=== PATIENT | male | born 1940 | race Caucasian/White ===

== ENCOUNTER → 2016-08-29 | Outpatient (CLI) | payer OTHER ==
[~2016-08-29] MED LIST: ACET500C PO; ANTIBIOTIC PD; COLA100C PO; FISH100049 PO; FLOM5CAP PO; MACR100C3 PO; MULTTAB23 PO; NORV5TAB PO
== END ==
LOC: M SMT 11:27
PROVIDERS: ATTEND Urology
DX: C61 Malignant neoplasm of prostate (principal)

== ENCOUNTER 2016-09-18 22:49 | Emergency (ER) | payer OTHER ==
[~2016-09-18] VITALS: Ht 170.2 cm; Wt 83.0 kg
[2016-09-18 22:50] VITALS: BP 174/81
[2016-09-18] MEDS ORDERED: TRAZ100T4 PO (23:28)
[2016-09-18] MEDS ORDERED: CITA20TA4 PO (23:28)
[2016-09-19] MEDS ORDERED: guaiFENesin DM LIQ 10ML UD PO ONE (01:15)
--- NOTE | 2016-09-19 01:36 | REP ---
Clinical: Cough . Comparison: 10/24/2009 . Technique: PA and lateral. Findings: The mediastinum and cardiac silhouette are normal. The lung chapin are clear and without acute consolidation, effusion, or pneumothorax. The skeletal structures are intact and normal. Impression: 1. No acute cardiopulmonary process. Signed by Jon Foster MD 09/19/2016 01:27 A
== END 2016-09-19 02:03 | disposition home or self-care (01) ==
LOC: M ED 23:37
DX: R05 Cough (principal); Z87.891 Personal history of nicotine dependence

== ENCOUNTER → 2016-10-02 | Outpatient (REF) | payer OTHER ==
[~2016-10-02] MED LIST changes: +CITA20TA4 PO; +TRAZ100T4 PO
== END ==
LOC: M LAB REF 12:22
PROVIDERS: ATTEND Internal Medicine
DX: Z11.59 Encounter for screening for other viral diseases (principal)

== ENCOUNTER → 2017-01-01 | Outpatient (REF) | payer OTHER ==
[~2017-01-01] MED LIST changes: -COLA100C PO; +COLA100C5 PO; -MACR100C3 PO; +MACR100C43 PO; +TRAZ-136 PO; -TRAZ100T4 PO
== END ==
LOC: M LAB REF 16:24
PROVIDERS: ATTEND Surgery
DX: C44.519 Basal cell carcinoma of skin of other part of trunk (principal)

== ENCOUNTER → 2017-08-05 | Outpatient (CLI) | payer OTHER ==
[2017-08-05 19:45] LABS: PROSTATIC SPECIFIC AG MONITOR 4.02 NG/ML (< 4.0)
== END ==
LOC: M SMT 14:11
DX: C61 Malignant neoplasm of prostate (principal)
CPT/HCPCS: 84153

== ENCOUNTER 2018-05-11 10:55 | Inpatient (IN) | payer OTHER ==
[2018-05-11] MEDS: ASPIRIN 81 MG ENTERIC TAB PO (09:00)
[2018-05-11 13:06] LABS: BASO % 0.5 % (0.0-1.0); EOS # 0.2 10^3/uL (0.0-0.50); EOS % 2.7 % (0.0-3.0); HEMATOCRIT 42.8 % (42.0-52.0); HEMOGLOBIN 14.5 g/dl (13.5-17.5); IMMATURE GRANULOCYTE % 0.3 % (0-3.0); LYMPH # 1.1 10^3/uL (1.5-4.5); LYMPH % 17.8 % (24.0-44.0); MEAN CORPUSCULAR HEMOGLOBIN 31.9 pg (27.0-33.0); MEAN CORPUSCULAR HGB CONC 33.9 g/dl (32.0-36.5); MEAN CORPUSCULAR VOLUME 94.3 fl (80.0-96.0); MONO # 0.5 10^3/uL (0.0-0.8); MONO % 7.4 % (0.0-5.0); NEUTROPHILS # 4.6 10^3/uL (1.8-7.7); NEUTROPHILS % 71.3 % (36.0-66.0); PLATELET COUNT, AUTOMATED 203 10^3/uL (150-450); RED BLOOD COUNT 4.54 10^6/uL (4.30-6.10); RED CELL DISTRIBUTION WIDTH 11.6 % (11.5-14.5); WHITE BLOOD COUNT 6.4 10^3/uL (4.0-10.0)
[2018-05-11 13:21] LABS: INR 1.03; PROTHROMBIN TIME 13.6 SECONDS (12.1-14.4)
[2018-05-11 13:36] LABS: ANION GAP 6 MEQ/L (8-16); BLOOD UREA NITROGEN 29 MG/DL (7-18); CALCIUM LEVEL 8.8 MG/DL (8.8-10.2); CARBON DIOXIDE LEVEL 28 MEQ/L (21-32); CHLORIDE LEVEL 107 MEQ/L (98-107); CPK CREATINE PHOSPHOKINASE 58 U/L (39-308); ETHYL ALCOHOL (ETHANOL) < 0.003 % (0.000-0.010); GLOMERULAR FILTRATION RATE > 60.0 (>42); GLUCOSE, FASTING 95 MG/DL (70-100); MB/CK RELATIVE INDEX 2.59 (< OR =4); SODIUM LEVEL 141 MEQ/L (136-145); THYROID STIMULATING HORMONE 0.644 uIU/ML (0.358-3.740); TROPONIN I < 0.02 NG/ML (< 0.10)
[2018-05-11 16:21] LABS: HEMATOCRIT 42.5 % (42.0-52.0); HEMOGLOBIN 14.5 g/dl (13.5-17.5); MEAN CORPUSCULAR HGB CONC 34.1 g/dl (32.0-36.5); MEAN CORPUSCULAR VOLUME 93.8 fl (80.0-96.0); PLATELET COUNT, AUTOMATED 210 10^3/uL (150-450); RED BLOOD COUNT 4.53 10^6/uL (4.30-6.10); RED CELL DISTRIBUTION WIDTH 11.5 % (11.5-14.5); WHITE BLOOD COUNT 7.6 10^3/uL (4.0-10.0)
[2018-05-11 16:54] LABS: ANION GAP 5 MEQ/L (8-16); BLOOD UREA NITROGEN 27 MG/DL (7-18); CALCIUM LEVEL 8.9 MG/DL (8.8-10.2); CARBON DIOXIDE LEVEL 30 MEQ/L (21-32); CHLORIDE LEVEL 105 MEQ/L (98-107); CREATININE FOR GFR 0.92 MG/DL (0.70-1.30); GLOMERULAR FILTRATION RATE > 60.0 (>42); GLUCOSE, FASTING 97 MG/DL (70-100); POTASSIUM SERUM 3.9 MEQ/L (3.5-5.1); SODIUM LEVEL 140 MEQ/L (136-145)
[2018-05-11] MEDS ORDERED: hydrALAZINE INJ 20 MG/ML VIAL IV (17:00)
[2018-05-11] MEDS: ACETAMINOPHEN TAB 650MG DOSE (2X325MG) PO (18:18)
[2018-05-11] MEDS: hydrALAZINE INJ 20 MG/ML VIAL IV (18:25)
[2018-05-11 21:36] LABS: TROPONIN I < 0.02 NG/ML (< 0.10)
[2018-05-11] MEDS: CitaloPRAM (CeleXA) 20 MG TAB PO (22:27)
[2018-05-11] MEDS: HEPARIN SOD (PORCINE) 5000 UNITS/ML VIAL SC (22:28)
[2018-05-11] MEDS: traZODone 100 MG TAB PO (22:33)
[2018-05-12] MEDS: HEPARIN SOD (PORCINE) 5000 UNITS/ML VIAL SC ×3 (06:00→20:18)
[2018-05-12] MEDS: ASPIRIN 81 MG ENTERIC TAB PO (09:56)
[2018-05-12] MEDS: OMEGA-3 1000MG CAPSULE PO (09:56)
[2018-05-12] MEDS: MULTIVITAMINS/MINERALS THERAP 1 TAB PO (09:56)
[2018-05-12] MEDS: ACETAMINOPHEN TAB 650MG DOSE (2X325MG) PO (10:54)
[2018-05-12] MEDS: CitaloPRAM (CeleXA) 20 MG TAB PO (20:18)
[2018-05-12] MEDS: traZODone 100 MG TAB PO (20:30)
[2018-05-12] MEDS: METOPROLOL TART 25 MG TABLET PO (22:52)
[2018-05-12] MEDS: FLECAINIDE 50MG TABLET PO (22:53)
[2018-05-13] MEDS: HEPARIN SOD (PORCINE) 5000 UNITS/ML VIAL SC (06:14)
== END 2018-05-13 11:30 | disposition home or self-care (01) | DRG 312 ==
LOC: M ED 10:55 → M ED INP 15:36 → M PCU 17:17
DX: I95.1 Orthostatic hypotension (principal); I48.2 Chronic atrial fibrillation; I10 Essential (primary) hypertension; R55 Syncope and collapse; R00.1 Bradycardia, unspecified; R20.0 Anesthesia of skin; Z79.82 Long term (current) use of aspirin; Z79.899 Other long term (current) drug therapy; G47.00 Insomnia, unspecified; N40.0 Benign prostatic hyperplasia without lower urinary tract symptoms; Z87.891 Personal history of nicotine dependence

== ENCOUNTER → 2019-11-19 | Outpatient (CLI) | payer MEDICARE ==
[~2019-11-19] MED LIST changes: +ASPI81TA85 PO; -CITA20TA4 PO; +CITA20TA6 PO; +FLOM0.4C39 PO; -FLOM5CAP PO; -TRAZ-136 PO; +TRAZ-257 PO
== END ==
LOC: M LABSMTC 13:17
PROVIDERS: ATTEND Family Medicine
DX: Z11.59 Encounter for screening for other viral diseases (principal)
CPT/HCPCS: C9803; U0003

== ENCOUNTER → 2020-02-17 | Outpatient (REF) | payer MEDICARE ==
[~2020-02-17] MED LIST changes: -ASPI81TA85 PO; +ASPI81TA86 PO
[2020-03-22 10:45] LABS: INR 1.46; PARTIAL THROMBOPLASTIN TIME 38.9 SECONDS (25.0-38.4); PROTHROMBIN TIME 18.1 SECONDS (11.8-14.0)
== END ==
LOC: M LAB REF 12:51
PROVIDERS: ATTEND Internal Medicine
DX: Z01.818 Encounter for other preprocedural examination (principal)

== ENCOUNTER 2021-03-22 20:47 | Emergency (ER) | payer MEDICARE ==
[~2021-03-22] VITALS: Ht 170.2 cm; Wt 81.8 kg
[2021-03-22 21:43] LABS: BASO # 0.1 10^3/uL (0.0-0.2); BASO % 0.8 % (0.0-1.0); EOS # 0.2 10^3/uL (0.0-0.5); EOS % 2.3 % (0.0-3.0); HEMATOCRIT 46.1 % (42.0-52.0); HEMOGLOBIN 15.6 g/dl (13.5-17.5); LYMPH # 1.1 10^3/uL (1.5-5.0); MEAN CORPUSCULAR HGB CONC 33.8 g/dl (32.0-36.5); MEAN CORPUSCULAR VOLUME 94.5 fl (80.0-96.0); MONO # 0.8 10^3/uL (0.0-0.8); MONO % 7.3 % (2.0-8.0); NEUTROPHILS # 8.4 10^3/uL (1.5-8.5); PLATELET COUNT, AUTOMATED 226 10^3/uL (150-450); RED BLOOD COUNT 4.88 10^6/uL (4.30-6.10); WHITE BLOOD COUNT 10.6 10^3/uL (4.0-10.0)
[2021-03-22 21:54] LABS: INR 1.07; PROTHROMBIN TIME 14.3 SECONDS (12.7-14.5)
[2021-03-22 21:55] LABS: PARTIAL THROMBOPLASTIN TIME 34.6 SECONDS (25.9-37.0)
[2021-03-22 22:11] LABS: ALBUMIN 3.5 GM/DL (3.2-5.2); ALT/SGPT 23 U/L (12-78); BILIRUBIN,DIRECT 0.1 MG/DL (0.0-0.2); BILIRUBIN,TOTAL 0.5 MG/DL (0.2-1.0); BLOOD UREA NITROGEN 21 MG/DL (7-18); CALCIUM LEVEL 8.6 MG/DL (8.8-10.2); CARBON DIOXIDE LEVEL 28 MEQ/L (21-32); CHLORIDE LEVEL 107 MEQ/L (98-107); CK-MB VALUE MASS 2.5 NG/ML (<3.6); CPK CREATINE PHOSPHOKINASE 80 U/L (39-308); CREATININE FOR GFR 1.02 MG/DL (0.70-1.30); FREE T4 1.02 NG/DL (0.76-1.46); GLOMERULAR FILTRATION RATE > 60.0 (>42); GLUCOSE, FASTING 97 MG/DL (70-100); LIPASE 129 U/L (73-393); MB/CK RELATIVE INDEX 3.12 (< OR =4); POTASSIUM SERUM 4.1 MEQ/L (3.5-5.1); SODIUM LEVEL 144 MEQ/L (136-145); THYROID STIMULATING HORMONE 0.726 uIU/ML (0.358-3.740); TROPONIN I < 0.02 NG/ML (< 0.10)
[2021-03-22 23:19] VITALS: BP 167/96
--- NOTE | 2021-03-22 23:19 | REPVR ---
PROCEDURE INFORMATION: Exam: XR Chest Exam date and time: 03/22/2021 10:11 PM Age: 80 years old Clinical indication: Other: Chest pain TECHNIQUE: Imaging protocol: XR of the chest. Views: 2 views. COMPARISON: CR Chest, 2 view PA, Lat 09/19/2016 12:00 AM FINDINGS: Lungs: The lungs appear clear. Pleural spaces: There is no evidence of pneumothorax or pleural effusion. Heart/Mediastinum: The heart is top-normal in size. Bones/joints: There is bridging osteophyte formation lower thoracic spine. IMPRESSION: Clear appearing lungs. Electronically signed by: Augustin Fried On 03/22/2021 23:19:23 PM
--- NOTE | 2021-03-24 05:12 | ECGEPIP ---
[facility] - ED Test Date: 2021-03-22 Pat Name: NGOC RODARTE Department: Room: - Gender: Male [employer]: ED : 1940 Requested By: MATT Govea Order Number: [id number] Reading MD: Rich Chandra Measurements Intervals [place] Rate: 99 P: IN: QRS: 23 QRSD: 80 T: 12 QT: 350 QTc: 449 Interpretive Statements Atrial flutter with variable AV block Electronically Signed on 03-24-2021 5:11:30 EDT by Rich Chandra
== END 2021-03-22 23:50 | disposition home or self-care (01) ==
LOC: M ED 20:47
DX: R23.2 Flushing (principal); I48.91 Unspecified atrial fibrillation; F32.9 Major depressive disorder, single episode, unspecified; Z79.82 Long term (current) use of aspirin; Z79.899 Other long term (current) drug therapy

== ENCOUNTER 2021-10-31 09:34 | Inpatient (IN) | payer MEDICARE ==
[~2021-10-31] VITALS: Ht 170.2 cm; Wt 82.9 kg
[2021-10-31] MEDS ORDERED: LORazepam 2 MG/ML VIAL IV STA ×2 (11:06→12:33)
[2021-10-31 11:54] LABS: BASO % 0.3 % (0.0-1.0); EOS % 0.3 % (0.0-3.0); HEMATOCRIT 43.9 % (42.0-52.0); HEMOGLOBIN 14.9 g/dl (13.5-17.5); LYMPH # 0.9 10^3/uL (1.5-5.0); MEAN CORPUSCULAR HEMOGLOBIN 31.7 pg (27.0-33.0); MEAN CORPUSCULAR HGB CONC 33.9 g/dl (32.0-36.5); MEAN CORPUSCULAR VOLUME 93.4 fl (80.0-96.0); MONO # 0.5 10^3/uL (0.0-0.8); MONO % 4.9 % (2.0-8.0); NEUTROPHILS % 85.1 % (36.0-66.0); PLATELET COUNT, AUTOMATED 264 10^3/uL (150-450); WHITE BLOOD COUNT 9.4 10^3/uL (4.0-10.0)
[2021-10-31 12:05] LABS: INR 1.55; PARTIAL THROMBOPLASTIN TIME 39.4 SECONDS (25.9-37.0)
[2021-10-31 12:18] LABS: ALBUMIN 3.9 GM/DL (3.2-5.2); ALT/SGPT 20 U/L (12-78); BILIRUBIN,DIRECT 0.2 MG/DL (0.0-0.2); BILIRUBIN,TOTAL 0.7 MG/DL (0.2-1.0); BLOOD UREA NITROGEN 30 MG/DL (7-18); CALCIUM LEVEL 9.2 MG/DL (8.8-10.2); CARBON DIOXIDE LEVEL 26 MEQ/L (21-32); CHLORIDE LEVEL 110 MEQ/L (98-107); CREATININE FOR GFR 0.96 MG/DL (0.70-1.30); GLOMERULAR FILTRATION RATE > 60.0 (>42); GLUCOSE, FASTING 137 MG/DL (70-100); POTASSIUM SERUM 4.5 MEQ/L (3.5-5.1); SODIUM LEVEL 141 MEQ/L (136-145); TOTAL PROTEIN 6.3 GM/DL (6.4-8.2)
[2021-10-31] MEDS ORDERED: BACLOFEN 10 MG TAB PO ONE (12:40)
[2021-10-31 13:07] LABS: RSV AMPLIFICATION NEGATIVE (NEGATIVE)
[2021-10-31] MEDS ORDERED: ROCURONIUM BROMIDE 50 MG/5 ML VIAL IV PRN (15:25)
[2021-10-31] MEDS ORDERED: ROCURONIUM BROMIDE 50 MG/5 ML VIAL IV ONE (15:25)
[2021-10-31] MEDS ORDERED: ETOMIDATE INJ 20MG/10ML VIAL IV ONE (15:25)
[2021-10-31] MEDS: propofoL 1,000 MG in IV 1 EA IV SCH ×2 (15:43→21:40)
[2021-10-31] MEDS ORDERED: levETIRAcetam INJection 500 MG in D5W MINI-BAG PLUS 100 ML IV ONE (18:20)
[2021-10-31] MEDS ORDERED: REFRIGERATOR IV KEYS XX PRN (19:15)
[2021-10-31] MEDS: MIDAZOLAM HCL 100 MG in D5W 80 ML IV SCH (21:15)
[2021-10-31] MEDS ORDERED: PROHANCE 279.3MG/ML 15ML VIAL As Ordered ONE (22:08)
[2021-10-31] MEDS ORDERED: PROHANCE 279.3MG/ML 5ML VIAL As Ordered ONE (22:08)
[2021-10-31] MEDS ORDERED: methylPREDNISolone 1,000 MG, VIAL MATE ADAPTER 1 EACH in NS 250 ML IV ONE (23:55)
[2021-11-01] VITALS (20 sets, daily range): BP systolic 103–151; BP diastolic 54–88; O2SAT 100
[2021-11-01] MEDS: NS 1,000 ML IV SCH ×3 (01:02→20:42)
[2021-11-01 01:24] LABS: ABG BASE EXCESS -1.2 (-2.0-2.0); ABG HCO3 24.4 MEQ/L (22.0-26.0); ABG O2 SATURATION 99.4 % (95.0-99.0); ABG PARTIAL PRESSURE CO2 43.9 mmHg (35.0-45.0); ABG PARTIAL PRESSURE O2 169.5 mmHg (75.0-100.0); ABG STANDARD HCO3 23.5 MEQ/L (22.0-26.0); ABG TOTAL CO2 25.7 MEQ/L (23.0-31.0); ABG pH (ARTERIAL) 7.362 UNITS (7.350-7.450)
[2021-11-01] MEDS: propofoL 1,000 MG in IV 1 EA IV SCH ×2 (02:16→08:30)
[2021-11-01] MEDS: MIDAZOLAM HCL 100 MG in D5W 80 ML IV SCH (03:10)
[2021-11-01 04:24] LABS: BASO % 0.1 % (0.0-1.0); EOS % 0.2 % (0.0-3.0); HEMATOCRIT 39.7 % (42.0-52.0); HEMOGLOBIN 13.4 g/dl (13.5-17.5); LYMPH # 0.6 10^3/uL (1.5-5.0); LYMPH % 6.4 % (24.0-44.0); MEAN CORPUSCULAR HEMOGLOBIN 32.2 pg (27.0-33.0); MEAN CORPUSCULAR HGB CONC 33.8 g/dl (32.0-36.5); MEAN CORPUSCULAR VOLUME 95.4 fl (80.0-96.0); MONO # 0.3 10^3/uL (0.0-0.8); MONO % 2.9 % (2.0-8.0); NEUTROPHILS # 7.8 10^3/uL (1.5-8.5); NEUTROPHILS % 90.1 % (36.0-66.0); PLATELET COUNT, AUTOMATED 208 10^3/uL (150-450); RED BLOOD COUNT 4.16 10^6/uL (4.30-6.10); WHITE BLOOD COUNT 8.6 10^3/uL (4.0-10.0)
[2021-11-01] MEDS: IPRATROPIUM 0.5MG/ALBUTEROL 2.5MG INH SOL UD 3ML (DUONEB) NEB SCH ×2 (04:24→08:16)
[2021-11-01 04:57] LABS: ALBUMIN 3.4 GM/DL (3.2-5.2); ALT/SGPT 20 U/L (12-78); BILIRUBIN,TOTAL 0.9 MG/DL (0.2-1.0); BLOOD UREA NITROGEN 29 MG/DL (7-18); CALCIUM LEVEL 8.5 MG/DL (8.8-10.2); CARBON DIOXIDE LEVEL 26 MEQ/L (21-32); CHLORIDE LEVEL 110 MEQ/L (98-107); GLOMERULAR FILTRATION RATE > 60.0 (>42); GLUCOSE, FASTING 138 MG/DL (70-100); MAGNESIUM LEVEL 2.1 MG/DL (1.8-2.4); POTASSIUM SERUM 4.5 MEQ/L (3.5-5.1); SODIUM LEVEL 142 MEQ/L (136-145); TOTAL PROTEIN 5.7 GM/DL (6.4-8.2)
[2021-11-01] MEDS ORDERED: levETIRAcetam INJection 750 MG in D5W 100 ML IV SCH (06:00)
[2021-11-01] MEDS ORDERED: METO1TAB32 PO (06:12)
[2021-11-01] MEDS ORDERED: GABA-282 PO (06:12)
[2021-11-01] MEDS ORDERED: ATOR40TA75 PO (06:12)
[2021-11-01] MEDS ORDERED: XARE20TA PO (06:12)
[2021-11-01] MEDS ORDERED: HOME MED LIST COMPLETE! XX SCH (06:15)
[2021-11-01] MEDS ORDERED: MIDAZOLAM INJ 2MG/2ML VIAL (J2250 PER 1MG) IV ONE (06:20)
[2021-11-01] MEDS ORDERED: MIDAZOLAM INJ 2MG/2ML VIAL (J2250 PER 1MG) As Ordered ONE (06:21)
[2021-11-01] MEDS ORDERED: METOPROLOL 5 MG/5 ML VIAL IV STA (06:27)
[2021-11-01] MEDS ORDERED: METOPROLOL 5 MG/5 ML VIAL As Ordered ONE (06:28)
[2021-11-01] MEDS ORDERED: METOPROLOL 5 MG/5 ML VIAL IV PRN (08:55)
[2021-11-01] MEDS ORDERED: CHLORHEXIDINE GLUCONATE 0.12 % 15ML UDC (PERIDEX ORAL RINSE) MT SCH (09:00)
[2021-11-01] MEDS: PANTOPRAZOLE 40MG VIAL IV SCH (09:15)
[2021-11-01] MEDS ORDERED: IPRATROPIUM 0.5MG/ALBUTEROL 2.5MG INH SOL UD 3ML (DUONEB) NEB PRN (11:05)
[2021-11-01] MEDS: GABAPENTIN 300 MG CAP PO SCH ×2 (11:24→20:15)
[2021-11-01] MEDS: methylPREDNISolone 1,000 MG, VIAL MATE ADAPTER 1 EACH in NS 250 ML IV SCH (12:00)
[2021-11-01] MEDS ORDERED: levETIRAcetam INJection 500 MG in D5W 100 ML IV SCH (18:00)
[2021-11-01] MEDS ORDERED: levETIRAcetam INJection 500 MG in D5W MINI-BAG PLUS 100 ML IV SCH (18:00)
[2021-11-01] MEDS: RIVAROXABAN 20 MG TAB (XARELTO) PO SCH (18:04)
[2021-11-01] MEDS: clonazePAM 0.5 MG TAB PO SCH (20:14)
[2021-11-01] MEDS: THIAMINE 200MG 2ML VIAL IV SCH (20:15)
[2021-11-01] MEDS: rOPINIRole 0.25 MG TAB(REQUIP) PO SCH (20:37)
[2021-11-01] MEDS: diphenhydrAMINE 50MG CAP PO SCH (23:03)
[2021-11-02] VITALS: BP 131/59
[2021-11-02 02:02] LABS: APPEARANCE, URINE HAZY (CLEAR); BACTERIA, URINE AUTO 1+ (NEGATIVE); BILIRUBIN, URINE AUTO NEGATIVE (NEGATIVE); BLOOD, URINE BLOOD 3+ (NEGATIVE); COLOR, URINE YELLOW (YELLOW); GLUCOSE, URINE (UA) AUTO NEGATIVE (NEGATIVE); KETONE, URINE AUTO TRACE mg/dL (NEGATIVE); LEUKOCYTE ESTERASE, URINE AUTO 2+ (NEGATIVE); NITRITE, URINE AUTO NEGATIVE (NEGATIVE); PROTEIN, URINE AUTO 2+ mg/dL (NEGATIVE); RBC, URINE AUTO TNTC /HPF (0-3); SPECIFIC GRAVITY URINE AUTO 1.016 (1.002-1.035); SQUAMOUS EPITHELIAL CELL UR AU 0 /HPF (0-6); UROBILINOGEN, URINE AUTO 0.2 mg/dL (0.0-2.0); WBC, URINE AUTO 9 /HPF (0-3)
[2021-11-02 04:00] VITALS: BP 143/65
[2021-11-02] MEDS ORDERED: LORazepam 2 MG/ML VIAL IM STA (04:02)
[2021-11-02] MEDS ORDERED: LORazepam 2 MG/ML VIAL IV STA (04:05)
[2021-11-02] MEDS: cefTRIAXone SOD 1 GM in D5W MINI-BAG PLUS 50 ML IV SCH (04:37)
[2021-11-02 05:28] LABS: BASO % 0.1 % (0.0-1.0); HEMATOCRIT 38.8 % (42.0-52.0); HEMOGLOBIN 12.8 g/dl (13.5-17.5); LYMPH # 0.5 10^3/uL (1.5-5.0); LYMPH % 3.2 % (24.0-44.0); MEAN CORPUSCULAR HEMOGLOBIN 31.8 pg (27.0-33.0); MEAN CORPUSCULAR VOLUME 96.3 fl (80.0-96.0); MONO # 0.8 10^3/uL (0.0-0.8); MONO % 4.8 % (2.0-8.0); NEUTROPHILS # 14.8 10^3/uL (1.5-8.5); NEUTROPHILS % 91.2 % (36.0-66.0); PLATELET COUNT, AUTOMATED 220 10^3/uL (150-450); RED BLOOD COUNT 4.03 10^6/uL (4.30-6.10); WHITE BLOOD COUNT 16.2 10^3/uL (4.0-10.0)
[2021-11-02 05:53] LABS: BLOOD UREA NITROGEN 24 MG/DL (7-18); CALCIUM LEVEL 8.5 MG/DL (8.8-10.2); CARBON DIOXIDE LEVEL 23 MEQ/L (21-32); CHLORIDE LEVEL 113 MEQ/L (98-107); CREATININE FOR GFR 0.89 MG/DL (0.70-1.30); GLOMERULAR FILTRATION RATE > 60.0 (>42); GLUCOSE, FASTING 136 MG/DL (70-100); POTASSIUM SERUM 4.7 MEQ/L (3.5-5.1); SODIUM LEVEL 144 MEQ/L (136-145)
[2021-11-02 08:00] VITALS: BP 142/63
[2021-11-02 08:26] LABS: AMPHETAMINES LEVEL URINE NEGATIVE (NEGATIVE); BARBITURATES URINE NEGATIVE (NEGATIVE); BENZODIAZEPINES URINE POSITIVE (NEGATIVE); CANNABINOIDS URINE NEGATIVE (NEGATIVE); COCAINE METABOLITE URINE NEGATIVE (NEGATIVE); METHADONE URINE NEGATIVE (NEGATIVE); OPIATES URINE NEGATIVE (NEGATIVE); PHENCYCLIDINE URINE NEGATIVE (NEGATIVE)
[2021-11-02] MEDS: NS 1,000 ML IV SCH ×2 (09:00→19:32)
[2021-11-02] MEDS: clonazePAM 0.5 MG TAB PO SCH ×2 (09:00→09:03)
[2021-11-02] MEDS ORDERED: CEPHALEXIN 500 MG CAP PO SCH (09:00)
[2021-11-02] MEDS: rOPINIRole 0.25 MG TAB(REQUIP) PO SCH ×3 (09:03→20:05)
[2021-11-02] MEDS: PANTOPRAZOLE 40MG VIAL IV SCH (09:04)
[2021-11-02] MEDS: THIAMINE 200MG 2ML VIAL IV SCH (09:04)
[2021-11-02] MEDS: GABAPENTIN 300 MG CAP PO SCH ×2 (09:04→20:04)
[2021-11-02 12:00] VITALS: BP 128/76
[2021-11-02] MEDS ORDERED: METOPROLOL TART 12.5 MG PER 1/2 TAB PO ONE (12:00)
[2021-11-02] MEDS: methylPREDNISolone 1,000 MG, VIAL MATE ADAPTER 1 EACH in NS 250 ML IV SCH (12:08)
[2021-11-02] MEDS ORDERED: traMADol 50 MG TAB PO ONE (15:45)
[2021-11-02 16:00] VITALS: BP 120/56
[2021-11-02] MEDS ORDERED: LORazepam 1 MG TAB PO ONE (16:00)
[2021-11-02 16:08] LABS: ANTI CENTROMERE ANTIBODY <0.2 AI (0.0-0.9); CARDIOLIPIN IGA ANTIBODY <9 APL U/mL (0-11); CARDIOLIPIN IGG ANTIBODY <9 GPL U/mL (0-14); CARDIOLIPIN IGM ANTIBODY <9 MPL U/mL (0-12)
[2021-11-02] MEDS: RIVAROXABAN 20 MG TAB (XARELTO) PO SCH (19:18)
[2021-11-02 20:00] VITALS: BP 147/65
[2021-11-02] MEDS: METOPROLOL SUCC *XL* 25MG TAB (TopROL *XL*) PO SCH (20:05)
[2021-11-02] MEDS: diphenhydrAMINE 50MG CAP PO SCH (21:40)
[2021-11-02] MEDS ORDERED: traZODone 100 MG TAB PO ONE (22:15)
[2021-11-03] VITALS (9 sets, daily range): BP systolic 125–166; BP diastolic 60–88
[2021-11-03 00:42] LABS: HEMATOCRIT 36.5 % (42.0-52.0); HEMOGLOBIN 11.8 g/dl (13.5-17.5); MEAN CORPUSCULAR HEMOGLOBIN 31.4 pg (27.0-33.0); MEAN CORPUSCULAR HGB CONC 32.3 g/dl (32.0-36.5); MEAN CORPUSCULAR VOLUME 97.1 fl (80.0-96.0); PLATELET COUNT, AUTOMATED 218 10^3/uL (150-450); RED BLOOD COUNT 3.76 10^6/uL (4.30-6.10); WHITE BLOOD COUNT 16.7 10^3/uL (4.0-10.0)
[2021-11-03] MEDS: cefTRIAXone SOD 1 GM in D5W MINI-BAG PLUS 50 ML IV SCH (04:18)
[2021-11-03 07:14] LABS: HEMATOCRIT 36.9 % (42.0-52.0); HEMOGLOBIN 12.1 g/dl (13.5-17.5); LYMPH # 0.4 10^3/uL (1.5-5.0); LYMPH % 2.1 % (24.0-44.0); MEAN CORPUSCULAR HEMOGLOBIN 32.4 pg (27.0-33.0); MEAN CORPUSCULAR HGB CONC 32.8 g/dl (32.0-36.5); MEAN CORPUSCULAR VOLUME 98.9 fl (80.0-96.0); MONO # 0.6 10^3/uL (0.0-0.8); MONO % 3.8 % (2.0-8.0); NEUTROPHILS # 15.8 10^3/uL (1.5-8.5); NEUTROPHILS % 93.2 % (36.0-66.0); PLATELET COUNT, AUTOMATED 209 10^3/uL (150-450); RED BLOOD COUNT 3.73 10^6/uL (4.30-6.10)
[2021-11-03 07:39] LABS: ALT/SGPT 49 U/L (12-78); BILIRUBIN,TOTAL 0.4 MG/DL (0.2-1.0); BLOOD UREA NITROGEN 34 MG/DL (7-18); CALCIUM LEVEL 8.5 MG/DL (8.8-10.2); CARBON DIOXIDE LEVEL 29 MEQ/L (21-32); CHLORIDE LEVEL 113 MEQ/L (98-107); CREATININE FOR GFR 0.83 MG/DL (0.70-1.30); GLOMERULAR FILTRATION RATE > 60.0 (>42); GLUCOSE, FASTING 146 MG/DL (70-100); POTASSIUM SERUM 4.3 MEQ/L (3.5-5.1); SODIUM LEVEL 146 MEQ/L (136-145); TOTAL PROTEIN 5.1 GM/DL (6.4-8.2)
[2021-11-03] MEDS: THIAMINE 200MG 2ML VIAL IV SCH (10:27)
[2021-11-03] MEDS: GABAPENTIN 300 MG CAP PO SCH ×2 (10:27→20:11)
[2021-11-03] MEDS: rOPINIRole 0.25 MG TAB(REQUIP) PO SCH (10:27)
[2021-11-03] MEDS: PANTOPRAZOLE 40MG VIAL IV SCH (10:27)
[2021-11-03] MEDS: methylPREDNISolone 1,000 MG, VIAL MATE ADAPTER 1 EACH in NS 250 ML IV SCH (12:32)
[2021-11-03] MEDS: rOPINIRole 1MG TAB PO SCH ×2 (15:18→21:57)
[2021-11-03] MEDS: RIVAROXABAN 20 MG TAB (XARELTO) PO SCH (18:26)
[2021-11-03] MEDS: METOPROLOL SUCC *XL* 25MG TAB (TopROL *XL*) PO SCH (20:11)
[2021-11-03] MEDS: diphenhydrAMINE 50MG CAP PO SCH (21:57)
[2021-11-03] MEDS ORDERED: clonazePAM 0.5 MG TAB PO ONE (22:30)
[2021-11-04] MEDS ORDERED: hydrOXYzine 50 MG TAB PO ONE (01:25)
[2021-11-04] MEDS: cefTRIAXone SOD 1 GM in D5W MINI-BAG PLUS 50 ML IV SCH (03:01)
[2021-11-04] MEDS: rOPINIRole 1MG TAB PO SCH ×3 (05:09→21:22)
[2021-11-04 06:00] VITALS: BP 161/74
[2021-11-04] MEDS: GABAPENTIN 300 MG CAP PO SCH ×2 (09:46→21:22)
[2021-11-04] MEDS: PANTOPRAZOLE 40MG VIAL IV SCH (09:46)
[2021-11-04] MEDS: THIAMINE 200MG 2ML VIAL IV SCH (09:47)
[2021-11-04] MEDS: ERTAPENEM SODIUM 1 GM in NS MINI-BAG PLUS 50 ML IV SCH (09:47)
[2021-11-04 14:00] VITALS: BP 140/71
[2021-11-04] MEDS: RIVAROXABAN 20 MG TAB (XARELTO) PO SCH (17:09)
[2021-11-04] MEDS: traZODone 100 MG TAB PO SCH (21:22)
[2021-11-04] MEDS: METOPROLOL SUCC *XL* 25MG TAB (TopROL *XL*) PO SCH (21:24)
[2021-11-04 22:00] VITALS: BP 158/71
[2021-11-05] MEDS: rOPINIRole 1MG TAB PO SCH ×3 (05:29→22:30)
[2021-11-05 06:00] VITALS: BP 154/72
[2021-11-05] MEDS: GABAPENTIN 300 MG CAP PO SCH ×2 (07:49→20:21)
[2021-11-05] MEDS: PANTOPRAZOLE 40MG VIAL IV SCH (07:49)
[2021-11-05] MEDS: THIAMINE 200MG 2ML VIAL IV SCH (07:49)
[2021-11-05 07:54] LABS: HEMOGLOBIN 12.1 g/dl (13.5-17.5); MEAN CORPUSCULAR HEMOGLOBIN 31.6 pg (27.0-33.0); MEAN CORPUSCULAR HGB CONC 32.7 g/dl (32.0-36.5); MEAN CORPUSCULAR VOLUME 96.6 fl (80.0-96.0); PLATELET COUNT, AUTOMATED 219 10^3/uL (150-450); RED BLOOD COUNT 3.83 10^6/uL (4.30-6.10); WHITE BLOOD COUNT 12.2 10^3/uL (4.0-10.0)
[2021-11-05 08:20] LABS: BLOOD UREA NITROGEN 35 MG/DL (7-18); CALCIUM LEVEL 8.4 MG/DL (8.8-10.2); CARBON DIOXIDE LEVEL 32 MEQ/L (21-32); CHLORIDE LEVEL 111 MEQ/L (98-107); CREATININE FOR GFR 0.76 MG/DL (0.70-1.30); GLOMERULAR FILTRATION RATE > 60.0 (>42); GLUCOSE, FASTING 83 MG/DL (70-100); POTASSIUM SERUM 3.7 MEQ/L (3.5-5.1); SODIUM LEVEL 147 MEQ/L (136-145)
[2021-11-05] MEDS: ERTAPENEM SODIUM 1 GM in NS MINI-BAG PLUS 50 ML IV SCH (11:15)
[2021-11-05] MEDS ORDERED: TAMSULOSIN 0.4 MG CAP PO ONE (12:40)
[2021-11-05 14:00] VITALS: BP 143/71
[2021-11-05] MEDS ORDERED: FOSFOMYCIN TROMETHAMINE 3 GM POWDER PACKET (MONUROL) PO ONE (18:00)
[2021-11-05] MEDS: RIVAROXABAN 20 MG TAB (XARELTO) PO SCH (18:11)
[2021-11-05] MEDS: traZODone 100 MG TAB PO SCH (20:18)
[2021-11-05 20:21] VITALS: BP 139/69
[2021-11-05] MEDS: TAMSULOSIN 0.4 MG CAP PO SCH (20:21)
[2021-11-05] MEDS: METOPROLOL SUCC *XL* 25MG TAB (TopROL *XL*) PO SCH (20:21)
[2021-11-05 22:00] VITALS: BP 155/76
[2021-11-06] MEDS ORDERED: ACETAMINOPHEN TAB 650MG DOSE (2X325MG) PO PRN (00:05)
[2021-11-06] MEDS: rOPINIRole 1MG TAB PO SCH (05:39)
[2021-11-06 06:00] VITALS: BP 148/79
[2021-11-06 06:54] LABS: HEMATOCRIT 36.1 % (42.0-52.0); HEMOGLOBIN 11.9 g/dl (13.5-17.5); MEAN CORPUSCULAR HEMOGLOBIN 31.1 pg (27.0-33.0); MEAN CORPUSCULAR VOLUME 94.3 fl (80.0-96.0); PLATELET COUNT, AUTOMATED 201 10^3/uL (150-450); RED BLOOD COUNT 3.83 10^6/uL (4.30-6.10); WHITE BLOOD COUNT 8.3 10^3/uL (4.0-10.0)
[2021-11-06 07:13] LABS: BLOOD UREA NITROGEN 29 MG/DL (7-18); CALCIUM LEVEL 7.5 MG/DL (8.8-10.2); CARBON DIOXIDE LEVEL 31 MEQ/L (21-32); CHLORIDE LEVEL 107 MEQ/L (98-107); CREATININE FOR GFR 0.75 MG/DL (0.70-1.30); GLOMERULAR FILTRATION RATE > 60.0 (>42); GLUCOSE, FASTING 114 MG/DL (70-100); POTASSIUM SERUM 3.4 MEQ/L (3.5-5.1); SODIUM LEVEL 141 MEQ/L (136-145)
[2021-11-06] MEDS ORDERED: POTASSIUM CHLORIDE 10MEQ SR TABLET PO ONE (09:00)
[2021-11-06] MEDS: GABAPENTIN 300 MG CAP PO SCH (09:40)
[2021-11-06] MEDS: PANTOPRAZOLE 40MG VIAL IV SCH (09:40)
[2021-11-06] MEDS: THIAMINE 200MG 2ML VIAL IV SCH (09:40)
[2021-11-06] MEDS: TAMSULOSIN 0.4 MG CAP PO SCH (09:40)
[2021-11-06] MEDS ORDERED: ROPI1TAB3 PO (10:39)
[2021-11-06] MEDS ORDERED: GABA-282 PO (10:39)
[2021-11-06] MEDS ORDERED: FLOM0.4C39 PO (10:39)
[2021-11-06 16:09] LABS: ANTI DS-DNA AB Negative (Negative); ANTI SCLERODERMA ANTIBODIES <0.2 AI (0.0-0.9); ANTI SMITH(Sm) AB <20 Units (<20); ANTI-U1 RNP AB <20 Units (<20); ANTINUCLEAR ANTIBODIES DIRECT Negative (Negative)
[2021-11-08 23:07] LABS: ANCA-ATYPICAL <1:20 titer (Neg:<1:20); ANGIOTENSIN 1 CONVERTING ENZYM 34 U/L (14-82); COPPER PLASMA 81 ug/dL (69-132); CYTOPLASMIC NEUTROP AB ANCA-C <1:20 titer (Neg:<1:20); PERINUCLEAR AB ANCA-P <1:20 titer (Neg:<1:20)
== END 2021-11-06 13:10 | disposition home or self-care (01) | DRG 56 ==
LOC: EDBD 09:34 → M ED 09:34 → SUATTDRO 11-01 00:08 → M ED INP 11-01 00:18 → ENRESERV 11-01 00:40 → M ICU 11-01 01:21 → M MS5PR 11-03 21:00
PROVIDERS: ADMIT Internal Medicine; ATTEND Internal Medicine
PROC: 5A1935Z Respiratory Ventilation, Less than 24 Consecutive Hours (ICD-10-PCS; principal; 2021-11-01)
DX: G25.81 Restless legs syndrome (principal); G92.8 Other toxic encephalopathy; M62.82 Rhabdomyolysis; N39.0 Urinary tract infection, site not specified; I48.20 Chronic atrial fibrillation, unspecified; M50.00 Cervical disc disorder with myelopathy, unspecified cervical region; G37.3 Acute transverse myelitis in demyelinating disease of central nervous system; G25.71 Drug induced akathisia; E78.5 Hyperlipidemia, unspecified; Z79.01 Long term (current) use of anticoagulants; I51.7 Cardiomegaly; B96.20 Unspecified Escherichia coli [E. coli] as the cause of diseases classified elsewhere; F41.9 Anxiety disorder, unspecified; F32.A Depression, unspecified; R31.9 Hematuria, unspecified; T38.0X5A Adverse effect of glucocorticoids and synthetic analogues, initial encounter; Z79.899 Other long term (current) drug therapy

== ENCOUNTER 2021-11-08 09:32 | Inpatient (IN) | payer MEDICARE ==
[~2021-11-08] VITALS: Ht 170.2 cm; Wt 86.7 kg
[~2021-11-08 09:32] MED LIST changes: +ATOR40TA75 PO; +GABA-282 PO; +METO1TAB32 PO; +ROPI1TAB3 PO; +XARE20TA PO
[2021-11-08 10:44] LABS: BASO % 0.2 % (0.0-1.0); EOS # 0.3 10^3/uL (0.0-0.5); EOS % 2.7 % (0.0-3.0); HEMATOCRIT 37.7 % (42.0-52.0); HEMOGLOBIN 12.3 g/dl (13.5-17.5); LYMPH # 0.9 10^3/uL (1.5-5.0); LYMPH % 10.2 % (24.0-44.0); MEAN CORPUSCULAR HEMOGLOBIN 31.9 pg (27.0-33.0); MEAN CORPUSCULAR HGB CONC 32.6 g/dl (32.0-36.5); MEAN CORPUSCULAR VOLUME 97.7 fl (80.0-96.0); MONO # 0.8 10^3/uL (0.0-0.8); MONO % 8.3 % (2.0-8.0); NEUTROPHILS # 7.2 10^3/uL (1.5-8.5); NEUTROPHILS % 77.3 % (36.0-66.0); PLATELET COUNT, AUTOMATED 210 10^3/uL (150-450); RED BLOOD COUNT 3.86 10^6/uL (4.30-6.10); WHITE BLOOD COUNT 9.3 10^3/uL (4.0-10.0)
[2021-11-08 10:57] LABS: OSMOLALITY SERUM 298 MOSM/KG (280-301)
[2021-11-08 11:08] LABS: ALBUMIN 2.7 GM/DL (3.2-5.2); ALT/SGPT 37 U/L (12-78); BILIRUBIN,DIRECT < 0.1 MG/DL (0.0-0.2); BILIRUBIN,TOTAL 0.4 MG/DL (0.2-1.0); BLOOD UREA NITROGEN 26 MG/DL (7-18); CALCIUM LEVEL 8.8 MG/DL (8.8-10.2); CARBON DIOXIDE LEVEL 30 MEQ/L (21-32); CHLORIDE LEVEL 108 MEQ/L (98-107); CREATININE FOR GFR 0.84 MG/DL (0.70-1.30); GLOMERULAR FILTRATION RATE > 60.0 (>42); GLUCOSE, FASTING 143 MG/DL (70-100); POTASSIUM SERUM 4.3 MEQ/L (3.5-5.1); SODIUM LEVEL 143 MEQ/L (136-145); THYROID STIMULATING HORMONE 0.828 uIU/ML (0.358-3.740); TOTAL PROTEIN 4.9 GM/DL (6.4-8.2)
[2021-11-08 11:30] LABS: RSV AMPLIFICATION NEGATIVE (NEGATIVE)
[2021-11-08] MEDS ORDERED: ROPI1TAB3 PO (12:56)
[2021-11-08] MEDS ORDERED: GABA-282 PO (12:56)
[2021-11-08] MEDS ORDERED: TAMS1CAP17 PO (12:56)
[2021-11-08] MEDS ORDERED: VITMTA PO (12:58)
[2021-11-08] MEDS ORDERED: FISH1000 PO (12:58)
[2021-11-08] MEDS ORDERED: HOME MED LIST COMPLETE! XX SCH (13:00)
[2021-11-08 16:10] VITALS: BP 139/70
[2021-11-08] MEDS: GABAPENTIN 300 MG CAP PO SCH ×2 (16:58→20:31)
[2021-11-08 19:40] VITALS: BP 144/67
[2021-11-08] MEDS: traZODone 100 MG TAB PO SCH (20:30)
[2021-11-08] MEDS: CitaloPRAM (CeleXA) 20 MG TAB PO SCH (20:32)
[2021-11-08] MEDS: rOPINIRole 1MG TAB PO SCH (20:32)
[2021-11-08] MEDS: RIVAROXABAN 20 MG TAB (XARELTO) PO SCH (20:33)
[2021-11-08] MEDS: TAMSULOSIN 0.4 MG CAP PO SCH (20:33)
[2021-11-08] MEDS: METOPROLOL SUCC *XL* 25MG TAB (TopROL *XL*) PO SCH (20:33)
[2021-11-08] MEDS ORDERED: SIMETHICONE 80MG CHEW TAB PO ONE (20:55)
[2021-11-08] MEDS ORDERED: ATORVASTATIN 20 MG TAB PO SCH (21:00)
[2021-11-08] MEDS ORDERED: rOPINIRole 1MG TAB PO SCH (22:00)
[2021-11-08] MEDS: LACTOBACILLUS ACIDOPHILUS CAP (BACID) PO SCH (22:24)
[2021-11-08 23:21] VITALS: BP 150/68
[2021-11-09] MEDS ORDERED: RAMELTEON 8 MG TAB (ROZEREM) PO PRN (04:30)
[2021-11-09] MEDS ORDERED: ACETAMINOPHEN TAB 650MG DOSE (2X325MG) PO PRN (04:30)
[2021-11-09 05:38] VITALS: BP 147/67
[2021-11-09 06:23] LABS: BASO % 0.3 % (0.0-1.0); EOS # 0.3 10^3/uL (0.0-0.5); EOS % 2.7 % (0.0-3.0); HEMATOCRIT 36.7 % (42.0-52.0); LYMPH % 10.1 % (24.0-44.0); MEAN CORPUSCULAR HGB CONC 32.7 g/dl (32.0-36.5); MEAN CORPUSCULAR VOLUME 97.9 fl (80.0-96.0); MONO # 1.2 10^3/uL (0.0-0.8); NEUTROPHILS % 73.2 % (36.0-66.0); PLATELET COUNT, AUTOMATED 207 10^3/uL (150-450); RED BLOOD COUNT 3.75 10^6/uL (4.30-6.10); WHITE BLOOD COUNT 9.6 10^3/uL (4.0-10.0)
[2021-11-09 06:58] LABS: BLOOD UREA NITROGEN 20 MG/DL (7-18); CALCIUM LEVEL 8.6 MG/DL (8.8-10.2); CARBON DIOXIDE LEVEL 27 MEQ/L (21-32); CHLORIDE LEVEL 109 MEQ/L (98-107); GLOMERULAR FILTRATION RATE > 60.0 (>42); GLUCOSE, FASTING 122 MG/DL (70-100); POTASSIUM SERUM 4.3 MEQ/L (3.5-5.1); SODIUM LEVEL 145 MEQ/L (136-145)
[2021-11-09] MEDS: GABAPENTIN 300 MG CAP PO SCH ×3 (08:17→20:44)
[2021-11-09] MEDS: rOPINIRole 1MG TAB PO SCH ×2 (08:17→20:44)
[2021-11-09] MEDS: TAMSULOSIN 0.4 MG CAP PO SCH ×2 (08:17→20:44)
[2021-11-09] MEDS: LACTOBACILLUS ACIDOPHILUS CAP (BACID) PO SCH (08:17)
[2021-11-09 14:00] VITALS: BP 110/60
[2021-11-09] MEDS: traZODone 100 MG TAB PO SCH (20:43)
[2021-11-09] MEDS: RIVAROXABAN 20 MG TAB (XARELTO) PO SCH (20:44)
[2021-11-09] MEDS: CitaloPRAM (CeleXA) 20 MG TAB PO SCH (20:45)
[2021-11-09 20:47] VITALS: BP 127/73
[2021-11-09] MEDS: METOPROLOL SUCC *XL* 25MG TAB (TopROL *XL*) PO SCH (20:47)
[2021-11-09 22:00] VITALS: BP 150/78
[2021-11-10 05:53] VITALS: BP 125/60
[2021-11-10] MEDS: LACTOBACILLUS ACIDOPHILUS CAP (BACID) PO SCH (08:55)
[2021-11-10] MEDS: TAMSULOSIN 0.4 MG CAP PO SCH (08:56)
[2021-11-10] MEDS: GABAPENTIN 300 MG CAP PO SCH (08:56)
[2021-11-10] MEDS: rOPINIRole 1MG TAB PO SCH (08:57)
[2021-11-10 09:00] VITALS: BP 127/59
[2021-11-10] MEDS ORDERED: ROPI1TAB3 PO (11:21)
[2021-11-10] MEDS ORDERED: SIME80CH5 PO (11:56)
[2021-11-10] MEDS ORDERED: RISATAB3 PO (11:56)
[2021-11-10 13:43] VITALS: BP 150/79
== END 2021-11-10 14:46 | disposition home health service (06) | DRG 948 ==
LOC: EDBD 09:32 → M ED 09:32 → M ED INP 13:21 → ENRESERV 15:15 → M MSPAV 16:08
PROVIDERS: ADMIT Internal Medicine Nephrology; ATTEND Internal Medicine Nephrology
DX: R53.1 Weakness (principal); M50.00 Cervical disc disorder with myelopathy, unspecified cervical region; I48.92 Unspecified atrial flutter; K52.1 Toxic gastroenteritis and colitis; I48.0 Paroxysmal atrial fibrillation; E78.5 Hyperlipidemia, unspecified; G25.81 Restless legs syndrome; N40.1 Benign prostatic hyperplasia with lower urinary tract symptoms; Z96.0 Presence of urogenital implants; F41.9 Anxiety disorder, unspecified; F32.A Depression, unspecified; R33.9 Retention of urine, unspecified; Z98.1 Arthrodesis status; Z20.822 Contact with and (suspected) exposure to COVID-19; Z79.899 Other long term (current) drug therapy; Z79.01 Long term (current) use of anticoagulants; R19.7 Diarrhea, unspecified; T36.95XA Adverse effect of unspecified systemic antibiotic, initial encounter

== ENCOUNTER → 2021-11-28 | Outpatient (REF) | payer MEDICARE ==
[~2021-11-28] MED LIST changes: +FISH1000 PO; +RISATAB3 PO; +SIME80CH5 PO; +TAMS1CAP17 PO; +VITMTA PO
== END ==
LOC: M SMT PRO 09:10
PROVIDERS: ATTEND Urology
DX: C61 Malignant neoplasm of prostate (principal)

== ENCOUNTER → 2021-12-17 | Outpatient (CLI) | payer MEDICARE | LOC: M PLAIMG 12:00 | PROVIDERS: ATTEND Urology | DX: Z01.818 Encounter for other preprocedural examination (principal); C61 Malignant neoplasm of prostate ==

== ENCOUNTER 2021-12-25 20:37 | Inpatient (IN) | payer MEDICARE ==
[~2021-12-25] VITALS: Ht 170.2 cm; Wt 86.1 kg
[~2021-12-25 20:37] MED LIST changes: -CEFD300CAP PO
[2021-12-25] MEDS ORDERED: ACETAMINOPHEN TAB 650MG DOSE (2X325MG) PO ONE (21:05)
[2021-12-25 21:30] LABS: BASO % 0.3 % (0.0-1.0); EOS % 0.1 % (0.0-3.0); HEMATOCRIT 34.8 % (42.0-52.0); HEMOGLOBIN 11.4 g/dl (13.5-17.5); LYMPH # 0.4 10^3/uL (1.5-5.0); LYMPH % 2.4 % (24.0-44.0); MEAN CORPUSCULAR HEMOGLOBIN 31.6 pg (27.0-33.0); MEAN CORPUSCULAR HGB CONC 32.8 g/dl (32.0-36.5); MEAN CORPUSCULAR VOLUME 96.4 fl (80.0-96.0); MONO # 1.3 10^3/uL (0.0-0.8); MONO % 8.3 % (2.0-8.0); NEUTROPHILS # 13.6 10^3/uL (1.5-8.5); NEUTROPHILS % 88.2 % (36.0-66.0); PLATELET COUNT, AUTOMATED 222 10^3/uL (150-450); RED BLOOD COUNT 3.61 10^6/uL (4.30-6.10); WHITE BLOOD COUNT 15.4 10^3/uL (4.0-10.0)
[2021-12-25] MEDS ORDERED: NS 1,000 ML IV ONE (21:35)
[2021-12-25 21:42] LABS: INR 1.37; PROTHROMBIN TIME 17.3 SECONDS (12.7-14.5)
[2021-12-25 21:43] LABS: PARTIAL THROMBOPLASTIN TIME 36.5 SECONDS (25.9-37.0)
[2021-12-25 21:44] LABS: AMORPHOUS SEDIMENT SMALL (NEGATIVE); APPEARANCE, URINE CLOUDY (CLEAR); BACTERIA, URINE AUTO 1+ (NEGATIVE); BILIRUBIN, URINE AUTO NEGATIVE (NEGATIVE); BLOOD, URINE BLOOD 3+ (NEGATIVE); COLOR, URINE AMBER (YELLOW); GLUCOSE, URINE (UA) AUTO NEGATIVE (NEGATIVE); KETONE, URINE AUTO TRACE mg/dL (NEGATIVE); LEUKOCYTE ESTERASE, URINE AUTO 3+ (NEGATIVE); MUCUS, URINE SMALL (NEGATIVE); NITRITE, URINE AUTO POSITIVE (NEGATIVE); PROTEIN, URINE AUTO 2+ mg/dL (NEGATIVE); RBC, URINE AUTO 65 /HPF (0-3); SPECIFIC GRAVITY URINE AUTO 1.016 (1.002-1.035); SQUAMOUS EPITHELIAL CELL UR AU 0 /HPF (0-6); UROBILINOGEN, URINE AUTO 0.2 mg/dL (0.0-2.0); WBC, URINE AUTO TNTC /HPF (0-3)
[2021-12-25 21:52] LABS: ALBUMIN 3.2 GM/DL (3.2-5.2); ALT/SGPT 16 U/L (12-78); AMYLASE 29 U/L (25-115); BILIRUBIN,DIRECT 0.3 MG/DL (0.0-0.2); BILIRUBIN,TOTAL 1.4 MG/DL (0.2-1.0); BLOOD UREA NITROGEN 21 MG/DL (7-18); C REACTIVE PROTEIN QUANTITATIV 8.21 MG/DL (0.00-0.30); CALCIUM LEVEL 8.4 MG/DL (8.8-10.2); CARBON DIOXIDE LEVEL 26 MEQ/L (21-32); CHLORIDE LEVEL 106 MEQ/L (98-107); CREATININE FOR GFR 1.03 MG/DL (0.70-1.30); GLOMERULAR FILTRATION RATE > 60.0 (>42); GLUCOSE, FASTING 167 MG/DL (70-100); POTASSIUM SERUM 3.9 MEQ/L (3.5-5.1); SODIUM LEVEL 140 MEQ/L (136-145); TOTAL PROTEIN 5.4 GM/DL (6.4-8.2)
[2021-12-25 21:54] LABS: CK-MB VALUE MASS < 1.0 NG/ML (<3.6); CPK CREATINE PHOSPHOKINASE 67 U/L (39-308); MB/CK RELATIVE INDEX 1.49 (< OR =4)
[2021-12-25] MEDS ORDERED: cefTRIAXone SOD 2 GM in D5W MINI-BAG PLUS 50 ML IV ONE (23:35)
[2021-12-26] MEDS ORDERED: ACETAMINOPHEN TAB 650MG DOSE (2X325MG) PO PRN (00:10)
[2021-12-26] MEDS ORDERED: MAALOX 30 ML SUSP *UDC PO PRN (00:10)
[2021-12-26] MEDS ORDERED: MOM 30ML SUSPENSION UDC PO PRN (00:10)
[2021-12-26] MEDS ORDERED: ROPI1TAB3 PO (00:12)
[2021-12-26] MEDS ORDERED: HOME MED LIST COMPLETE! XX SCH (00:15)
[2021-12-26 03:07] VITALS: BP 124/63
[2021-12-26] MEDS: MEROPENEM INJ 1 GM in IV 1 EA IV SCH ×3 (04:13→17:25)
[2021-12-26] MEDS ORDERED: rOPINIRole 1MG TAB PO ONE (04:50)
[2021-12-26 06:00] VITALS: BP 128/62
[2021-12-26 06:21] LABS: BASO # 0.1 10^3/uL (0.0-0.2); BASO % 0.4 % (0.0-1.0); EOS % 0.3 % (0.0-3.0); HEMATOCRIT 39.9 % (42.0-52.0); HEMOGLOBIN 12.9 g/dl (13.5-17.5); LYMPH # 0.8 10^3/uL (1.5-5.0); MEAN CORPUSCULAR HEMOGLOBIN 31.7 pg (27.0-33.0); MEAN CORPUSCULAR HGB CONC 32.3 g/dl (32.0-36.5); MONO # 1.2 10^3/uL (0.0-0.8); NEUTROPHILS # 11.3 10^3/uL (1.5-8.5); NEUTROPHILS % 83.9 % (36.0-66.0); PLATELET COUNT, AUTOMATED 242 10^3/uL (150-450); RED BLOOD COUNT 4.07 10^6/uL (4.30-6.10); WHITE BLOOD COUNT 13.5 10^3/uL (4.0-10.0)
[2021-12-26 06:38] LABS: ALBUMIN 3.5 GM/DL (3.2-5.2); ALT/SGPT 16 U/L (12-78); BLOOD UREA NITROGEN 20 MG/DL (7-18); CALCIUM LEVEL 8.4 MG/DL (8.8-10.2); CARBON DIOXIDE LEVEL 29 MEQ/L (21-32); CHLORIDE LEVEL 105 MEQ/L (98-107); CREATININE FOR GFR 0.98 MG/DL (0.70-1.30); GLOMERULAR FILTRATION RATE > 60.0 (>42); GLUCOSE, FASTING 104 MG/DL (70-100); MAGNESIUM LEVEL 1.9 MG/DL (1.8-2.4); SODIUM LEVEL 141 MEQ/L (136-145); TOTAL PROTEIN 6.1 GM/DL (6.4-8.2)
[2021-12-26] MEDS: MULTIVITAMINS/MINERALS THERAP 1 TAB PO SCH (08:44)
[2021-12-26] MEDS: TAMSULOSIN 0.4 MG CAP PO SCH ×2 (08:44→20:02)
[2021-12-26] MEDS: LACTOBACILLUS ACIDOPHILUS CAP (BACID) PO SCH (08:44)
[2021-12-26] MEDS: GABAPENTIN 300 MG CAP PO SCH ×3 (08:44→20:02)
[2021-12-26] MEDS: rOPINIRole 1MG TAB PO SCH ×2 (08:44→20:03)
[2021-12-26 14:00] VITALS: BP 129/48
[2021-12-26] MEDS ORDERED: SIMETHICONE 80MG CHEW TAB PO PRN (15:10)
[2021-12-26] MEDS ORDERED: BISACODYL 10 MG SUPP PR ONE (16:00)
[2021-12-26 20:15] VITALS: BP 128/51
[2021-12-26] MEDS ORDERED: CitaloPRAM (CeleXA) 20 MG TAB PO SCH (21:00)
[2021-12-26] MEDS ORDERED: RIVAROXABAN 20MG TAB (XARELTO) PO SCH (21:00)
[2021-12-26] MEDS ORDERED: traZODone 100 MG TAB PO SCH (21:00)
[2021-12-26] MEDS ORDERED: ATORVASTATIN 20 MG TAB PO SCH (21:00)
[2021-12-27] MEDS: MEROPENEM INJ 1 GM in IV 1 EA IV SCH ×2 (01:27→10:51)
[2021-12-27 05:08] VITALS: BP 125/50
[2021-12-27 08:04] LABS: BASO % 0.5 % (0.0-1.0); EOS # 0.2 10^3/uL (0.0-0.5); EOS % 1.8 % (0.0-3.0); HEMOGLOBIN 11.4 g/dl (13.5-17.5); LYMPH % 11.3 % (24.0-44.0); MEAN CORPUSCULAR HEMOGLOBIN 31.6 pg (27.0-33.0); MEAN CORPUSCULAR HGB CONC 32.6 g/dl (32.0-36.5); MONO # 0.9 10^3/uL (0.0-0.8); MONO % 10.2 % (2.0-8.0); NEUTROPHILS # 6.6 10^3/uL (1.5-8.5); NEUTROPHILS % 75.7 % (36.0-66.0); PLATELET COUNT, AUTOMATED 207 10^3/uL (150-450); RED BLOOD COUNT 3.61 10^6/uL (4.30-6.10); WHITE BLOOD COUNT 8.7 10^3/uL (4.0-10.0)
[2021-12-27] MEDS: LACTOBACILLUS ACIDOPHILUS CAP (BACID) PO SCH (08:14)
[2021-12-27] MEDS: TAMSULOSIN 0.4 MG CAP PO SCH (08:14)
[2021-12-27] MEDS: GABAPENTIN 300 MG CAP PO SCH (08:14)
[2021-12-27] MEDS: MULTIVITAMINS/MINERALS THERAP 1 TAB PO SCH (08:14)
[2021-12-27] MEDS: rOPINIRole 1MG TAB PO SCH (08:14)
[2021-12-27 08:17] LABS: BLOOD UREA NITROGEN 19 MG/DL (7-18); CALCIUM LEVEL 8.5 MG/DL (8.8-10.2); CARBON DIOXIDE LEVEL 28 MEQ/L (21-32); CHLORIDE LEVEL 108 MEQ/L (98-107); CREATININE FOR GFR 0.81 MG/DL (0.70-1.30); GLOMERULAR FILTRATION RATE > 60.0 (>42); GLUCOSE, FASTING 118 MG/DL (70-100); POTASSIUM SERUM 3.8 MEQ/L (3.5-5.1); SODIUM LEVEL 143 MEQ/L (136-145)
[2021-12-27] MEDS ORDERED: CEFD300CAP PO (10:15)
== END 2021-12-27 12:26 | disposition home or self-care (01) | DRG 872 ==
LOC: EDBD 20:37 → M ED 20:37 → M ED INP 12-26 00:10 → M MSPAV 12-26 02:44
PROVIDERS: ADMIT Family Medicine; ATTEND Internal Medicine
DX: A41.9 Sepsis, unspecified organism (principal); N39.0 Urinary tract infection, site not specified; T83.511A Infection and inflammatory reaction due to indwelling urethral catheter, initial encounter; G37.3 Acute transverse myelitis in demyelinating disease of central nervous system; N40.0 Benign prostatic hyperplasia without lower urinary tract symptoms; I48.0 Paroxysmal atrial fibrillation; E78.5 Hyperlipidemia, unspecified; F32.A Depression, unspecified; G25.81 Restless legs syndrome; F41.9 Anxiety disorder, unspecified; N28.1 Cyst of kidney, acquired; K76.89 Other specified diseases of liver; Z79.899 Other long term (current) drug therapy; R33.9 Retention of urine, unspecified; G31.89 Other specified degenerative diseases of nervous system; Y84.6 Urinary catheterization as the cause of abnormal reaction of the patient, or of later complication, without mention of misadventure at the time of the procedure

== ENCOUNTER → 2021-12-25 | Outpatient (REF) | payer MEDICARE ==
[~2021-12-25] MED LIST changes: +CEFD300CAP PO
[2021-12-25 12:43] LABS: INR 1.42; PARTIAL THROMBOPLASTIN TIME 38.1 SECONDS (25.9-37.0); PROTHROMBIN TIME 17.8 SECONDS (12.7-14.5)
== END ==
LOC: M LAB REF 12:04
PROVIDERS: ATTEND Internal Medicine
DX: Z01.818 Encounter for other preprocedural examination (principal); C61 Malignant neoplasm of prostate; D72.829 Elevated white blood cell count, unspecified

== ENCOUNTER → 2022-01-06 | Outpatient (CLI) | payer MEDICARE ==
[~2022-01-06] MED LIST changes: +CEFD300C41 PO; +CEFD300CAP PO
== END ==
LOC: M LABSMTC 09:27
PROVIDERS: ATTEND Anesthesiology
DX: Z01.812 Encounter for preprocedural laboratory examination (principal); Z11.52 Encounter for screening for COVID-19

== ENCOUNTER 2022-01-10 06:02 | Inpatient (IN) | payer MEDICARE ==
[~2022-01-10] VITALS: Ht 170.2 cm; Wt 85.3 kg
[~2022-01-10 06:02] MED LIST changes: +HEPARIN SOD (PORCINE) 5000UNITS/ML 1ML VIAL/SYRINGE SQ ONE; +ceFAZolin SOD 2 GM in IV 1 EA IV ONE
[2022-01-10] MEDS ORDERED: LR 1,000 ML IV SCH ×2 (06:15→14:40)
[2022-01-10] MEDS ORDERED: propofoL 200 MG/20 ML VIAL As Ordered ONE (07:08)
[2022-01-10] MEDS ORDERED: fentaNYL 250 MCG/5 ML INJECTION As Ordered ONE (07:08)
[2022-01-10] MEDS ORDERED: LIDOCAINE 2% INJ 100 MG/5 ML SYRINGE As Ordered ONE (07:08)
[2022-01-10] MEDS ORDERED: SUGAMMADEX SODIUM 500 MG/5 ML VIAL (BRIDION) As Ordered ONE (07:08)
[2022-01-10] MEDS ORDERED: ROCURONIUM BROMIDE 50 MG/5 ML VIAL As Ordered ONE ×3 (07:08→13:17)
[2022-01-10] MEDS ORDERED: MIDAZOLAM INJ 2MG/2ML VIAL (J2250 PER 1MG) As Ordered ONE (07:09)
[2022-01-10] MEDS ORDERED: ETOMIDATE INJ 20MG/10ML VIAL As Ordered ONE (07:09)
[2022-01-10] MEDS ORDERED: LIDOCAINE 1% SDV 30ML VIAL As Ordered ONE (07:11)
[2022-01-10] MEDS ORDERED: BUPIVACAINE HCL 0.25% 30ML VIAL As Ordered ONE ×2 (07:11→07:45)
[2022-01-10] MEDS ORDERED: ACETAMINOPHEN TAB 650MG DOSE (2X325MG) PO PRN (07:25)
[2022-01-10] MEDS ORDERED: ONDANSETRON 4MG 2ML VIAL IV PRN ×2 (07:25→14:40)
[2022-01-10] MEDS ORDERED: NS 1,000 ML IV SCH (07:25)
[2022-01-10] MEDS ORDERED: PERCOCET 5MG/325MG TAB PO PRN (07:25)
[2022-01-10] MEDS ORDERED: ONDANSETRON 4MG 2ML VIAL As Ordered ONE (08:02)
[2022-01-10] MEDS ORDERED: dexameTHASONE 4 MG/ML 1ML VIAL (J1100 PER 1MG) As Ordered ONE (08:02)
[2022-01-10] MEDS ORDERED: ACETAMINOPHEN 1000MG 100ML IV BTL (OFIRMEV) (J0131 PER 10MG) As Ordered ONE (08:09)
[2022-01-10] MEDS ORDERED: hydrALAZINE 20MG/ML 1ML VIAL (J0360 PER 20MG) As Ordered ONE (08:33)
[2022-01-10] MEDS ORDERED: ceFAZolin 1GM VIAL (J0690 PER 500MG) As Ordered ONE (12:04)
[2022-01-10] MEDS ORDERED: MEPERIDINE INJ 25 MG/ML VIAL (J2175) IV PRN (14:40)
[2022-01-10] MEDS ORDERED: fentaNYL 100 MCG/2 ML INJECTION IV PRN (14:40)
[2022-01-10] MEDS ORDERED: METOCLOPRAMIDE INJ 10MG/2ML VIAL (J2765 PER 1) IV PRN (14:40)
[2022-01-10] MEDS ORDERED: HYDROMORPHONE HCL 0.5 MG/ 0.5 ML SYRINGE (J1170 PER 1) IV PRN (14:40)
[2022-01-10] MEDS ORDERED: oxyCODONE 5MG TAB PO PRN (14:40)
[2022-01-10 14:46] LABS: HEMATOCRIT 32.4 % (42.0-52.0); HEMOGLOBIN 10.5 g/dl (13.5-17.5); MEAN CORPUSCULAR HEMOGLOBIN 31.4 pg (27.0-33.0); MEAN CORPUSCULAR HGB CONC 32.4 g/dl (32.0-36.5); PLATELET COUNT, AUTOMATED 232 10^3/uL (150-450); RED BLOOD COUNT 3.34 10^6/uL (4.30-6.10); WHITE BLOOD COUNT 15.2 10^3/uL (4.0-10.0)
[2022-01-10 15:16] LABS: BLOOD UREA NITROGEN 20 MG/DL (7-18); CALCIUM LEVEL 8.3 MG/DL (8.8-10.2); CARBON DIOXIDE LEVEL 28 MEQ/L (21-32); CHLORIDE LEVEL 108 MEQ/L (98-107); CREATININE FOR GFR 1.11 MG/DL (0.70-1.30); GLOMERULAR FILTRATION RATE > 60.0 (>42); GLUCOSE, FASTING 138 MG/DL (70-100); POTASSIUM SERUM 4.4 MEQ/L (3.5-5.1); SODIUM LEVEL 140 MEQ/L (136-145)
[2022-01-10] MEDS: ceFAZolin SOD 1 GM in D5W MINI-BAG PLUS 50 ML IV SCH (15:55)
[2022-01-10] MEDS ORDERED: CitaloPRAM (CeleXA) 20 MG TAB PO SCH (21:00)
[2022-01-10] MEDS: GABAPENTIN 300 MG CAP PO SCH (21:30)
[2022-01-10] MEDS: HEPARIN SOD (PORCINE) 5000UNITS/ML 1ML VIAL/SYRINGE SC SCH (21:30)
[2022-01-10] MEDS: DOCUSATE SODIUM 100MG CAPSULE PO SCH (21:30)
[2022-01-10] MEDS: rOPINIRole 1MG TAB PO SCH (21:30)
[2022-01-11] MEDS: ceFAZolin SOD 1 GM in D5W MINI-BAG PLUS 50 ML IV SCH ×2
[2022-01-11 02:00] VITALS: BP 123/54
[2022-01-11] MEDS: PERCOCET 5MG/325MG TAB PO PRN ×3 (02:23→13:55)
[2022-01-11] MEDS: HEPARIN SOD (PORCINE) 5000UNITS/ML 1ML VIAL/SYRINGE SC SCH (06:01)
[2022-01-11 06:49] VITALS: BP 132/58
[2022-01-11 07:48] LABS: HEMOGLOBIN 9.2 g/dl (13.5-17.5); MEAN CORPUSCULAR HEMOGLOBIN 31.4 pg (27.0-33.0); MEAN CORPUSCULAR HGB CONC 32.9 g/dl (32.0-36.5); MEAN CORPUSCULAR VOLUME 95.6 fl (80.0-96.0); PLATELET COUNT, AUTOMATED 218 10^3/uL (150-450); RED BLOOD COUNT 2.93 10^6/uL (4.30-6.10); WHITE BLOOD COUNT 10.2 10^3/uL (4.0-10.0)
[2022-01-11] MEDS: DOCUSATE SODIUM 100MG CAPSULE PO SCH (07:58)
[2022-01-11] MEDS: rOPINIRole 1MG TAB PO SCH (07:59)
[2022-01-11] MEDS: GABAPENTIN 300 MG CAP PO SCH (08:00)
[2022-01-11 08:17] LABS: BLOOD UREA NITROGEN 17 MG/DL (7-18); CARBON DIOXIDE LEVEL 28 MEQ/L (21-32); CHLORIDE LEVEL 107 MEQ/L (98-107); CREATININE FOR GFR 0.99 MG/DL (0.70-1.30); GLOMERULAR FILTRATION RATE > 60.0 (>42); GLUCOSE, FASTING 118 MG/DL (70-100); POTASSIUM SERUM 4.4 MEQ/L (3.5-5.1); SODIUM LEVEL 138 MEQ/L (136-145)
[2022-01-11 08:18] LABS: CALCIUM LEVEL 8.1 MG/DL (8.8-10.2)
[2022-01-11 09:50] VITALS: BP 134/59
[2022-01-11 12:49] LABS: SOURCE, BODY FLUID CREATININE PERITONEAL
[2022-01-11] MEDS ORDERED: PERCOCET PO (14:35)
[2022-01-11] MEDS ORDERED: BACT800T5 PO (14:35)
[2022-01-11] MEDS ORDERED: COLA100C5 PO (14:35)
[2022-01-11 14:39] VITALS: BP 119/73
== END 2022-01-11 15:00 | disposition home or self-care (01) | DRG 708 ==
LOC: M OR 06:02 → M MS5PR 15:32
PROVIDERS: ADMIT Urology; ATTEND Urology
PROC: 07BC4ZZ Excision of Pelvis Lymphatic, Percutaneous Endoscopic Approach (ICD-10-PCS; 2022-01-10)
PROC: 8E0W4CZ Robotic Assisted Procedure of Trunk Region, Percutaneous Endoscopic Approach (ICD-10-PCS; 2022-01-10)
PROC: 0VT04ZZ Resection of Prostate, Percutaneous Endoscopic Approach (ICD-10-PCS; principal; 2022-01-10 07:30)
DX: C61 Malignant neoplasm of prostate (principal)

== ENCOUNTER → 2022-02-01 | Outpatient (CLI) | payer MEDICARE ==
[~2022-02-01] MED LIST changes: +BACT800T5 PO; -HEPARIN SOD (PORCINE) 5000UNITS/ML 1ML VIAL/SYRINGE SQ ONE; +PERCOCET PO; -ceFAZolin SOD 2 GM in IV 1 EA IV ONE
== END ==
LOC: M PLALAB 11:35
PROVIDERS: ATTEND Urology
DX: C61 Malignant neoplasm of prostate (principal)

== ENCOUNTER 2022-03-12 07:18 | Emergency (ER) | payer MEDICARE ==
[~2022-03-12] VITALS: Ht 170.2 cm; Wt 81.7 kg
[2022-03-12] MEDS ORDERED: XARE20TA (07:43)
[2022-03-12] MEDS ORDERED: BENZONATATE 100MG CAPSULE PO ONE (08:25)
[2022-03-12] MEDS ORDERED: ONDANSETRON 4MG ORAL DISINTEGRATING TAB PO ONE (08:25)
[2022-03-12] MEDS ORDERED: BENZ200C70 PO (09:55)
[2022-03-12] MEDS ORDERED: PROM25TA12 PO (09:55)
[2022-03-12 10:08] VITALS: BP 142/70
== END 2022-03-12 10:11 | disposition home or self-care (01) ==
LOC: M ED 07:18
DX: U07.1 COVID-19 (principal); I48.0 Paroxysmal atrial fibrillation; C61 Malignant neoplasm of prostate; Z79.899 Other long term (current) drug therapy

== ENCOUNTER → 2022-05-13 | Outpatient (CLI) | payer MEDICARE ==
[~2022-05-13] MED LIST changes: +BENZ200C70 PO; +PROM25TA12 PO; +XARE20TA
== END ==
LOC: M PLALAB 09:58
PROVIDERS: ATTEND Urology
DX: C61 Malignant neoplasm of prostate (principal)

== ENCOUNTER → 2022-05-17 | Outpatient (REF) | payer MEDICARE ==
[2022-05-17 18:23] LABS: APPEARANCE, URINE MANUAL HAZY (CLEAR); COLOR, URINE MANUAL YELLOW (YELLOW)
[2022-05-17 18:25] LABS: BILIRUBIN, URINE MANUAL NEGATIVE (NEGATIVE); BLOOD URINE MANUAL POSITIVE (NEGATIVE); GLUCOSE, URINE (UA) MANUAL NEGATIVE (NEGATIVE); KETONE, URINE MANUAL NEGATIVE (NEGATIVE); LEUKOCYTE ESTERASE, URINE MAN POSITIVE (NEGATIVE); NITRITE, URINE MANUAL POSITIVE (NEGATIVE); PROTEIN, URINE MANUAL 1+ mg/dL (NEGATIVE); UROBILINOGEN, URINE MANUAL NORMAL (NORMAL)
[2022-05-17 18:45] LABS: BACTERIA, URINE LARGE AMOUNT; HYALINE CAST, URINE NONE SEEN /lpf (0-1); SQUAMOUS EPITHELIAL CELL URINE SMALL AMOUNT /hpf (SMALL AMT); TRIPLE PHOSPHATE CRYSTAL,URINE SMALL AMOUNT /hpf; WBC, URINE TNTC /hpf (0-3)
== END ==
LOC: M SMT 16:57
PROVIDERS: ATTEND Urology
DX: N39.0 Urinary tract infection, site not specified (principal)

== ENCOUNTER → 2022-08-14 | Outpatient (CLI) | payer MEDICARE | LOC: M PLALAB 12:24 | PROVIDERS: ATTEND Urology | DX: C61 Malignant neoplasm of prostate (principal) ==

== ENCOUNTER → 2022-09-20 | Outpatient (CLI) | payer MEDICARE ==
[2022-09-20 13:35] LABS: HEMATOCRIT 43.5 % (42.0-52.0); HEMOGLOBIN 13.9 g/dl (13.5-17.5); MEAN CORPUSCULAR HEMOGLOBIN 30.8 pg (27.0-33.0); MEAN CORPUSCULAR VOLUME 96.5 fl (80.0-96.0); PLATELET COUNT, AUTOMATED 245 10^3/uL (150-450); RED BLOOD COUNT 4.51 10^6/uL (4.30-6.10); WHITE BLOOD COUNT 6.2 10^3/uL (4.0-10.0)
[2022-09-20 14:03] LABS: BLOOD UREA NITROGEN 27 MG/DL (9-23); CARBON DIOXIDE LEVEL 30 MMOL/L (20-31); CHLORIDE LEVEL 107 MMOL/L (98-107); CREATININE FOR GFR 1.03 MG/DL (0.70-1.30); GLOMERULAR FILTRATION RATE > 60.0 (>42); GLUCOSE, FASTING 97 MG/DL (74-106); POTASSIUM SERUM 4.1 MMOL/L (3.5-5.1); SODIUM LEVEL 141 MMOL/L (136-145)
== END ==
LOC: M PLALAB 11:14
PROVIDERS: ATTEND Nurse Practitioner Family
DX: I48.0 Paroxysmal atrial fibrillation (principal); R60.9 Edema, unspecified

== ENCOUNTER → 2022-09-20 | Outpatient (CLI) | payer MEDICARE | LOC: M PLALAB 11:16 | PROVIDERS: ATTEND Urology | DX: C61 Malignant neoplasm of prostate (principal) ==

== ENCOUNTER → 2022-10-22 | Outpatient (REF) | payer MEDICARE ==
[2022-10-22 17:35] LABS: INR 1.13; PROTHROMBIN TIME 14.7 SECONDS (12.5-14.5)
[2022-10-22 17:50] LABS: PERCENT SATURATION 25.7 % (19.7-50.0)
== END ==
LOC: M LAB REF 16:14
PROVIDERS: ATTEND Internal Medicine
DX: I48.0 Paroxysmal atrial fibrillation (principal); D72.829 Elevated white blood cell count, unspecified

== ENCOUNTER → 2022-11-05 | Outpatient (CLI) | payer MEDICARE | LOC: M PLALAB 12:29 | PROVIDERS: ATTEND Urology | DX: C61 Malignant neoplasm of prostate (principal) ==

== ENCOUNTER → 2022-11-05 | Outpatient (CLI) | payer MEDICARE ==
[2022-11-05 16:16] LABS: BLOOD UREA NITROGEN 27 MG/DL (9-23); CARBON DIOXIDE LEVEL 32 MMOL/L (20-31); CHLORIDE LEVEL 105 MMOL/L (98-107); CREATININE FOR GFR 1.09 MG/DL (0.70-1.30); GLOMERULAR FILTRATION RATE > 60.0 (>42); GLUCOSE, FASTING 103 MG/DL (74-106); POTASSIUM SERUM 4.5 MMOL/L (3.5-5.1); SODIUM LEVEL 141 MMOL/L (136-145)
== END ==
LOC: M PLALAB 12:27
PROVIDERS: ATTEND Internal Medicine
DX: E78.00 Pure hypercholesterolemia, unspecified (principal)

== ENCOUNTER → 2022-11-08 | Outpatient (CLI) | payer MEDICARE ==
[~2022-11-08] MED LIST changes: +GASTROGRAFIN SOLUTION 30ML As Ordered ONE; +ISOVUE-370 76% 100ML VIAL As Ordered ONE
== END ==
LOC: M RAD 12:35
PROVIDERS: ATTEND Internal Medicine
DX: R19.07 Generalized intra-abdominal and pelvic swelling, mass and lump (principal)
CPT/HCPCS: 74178; Q9963; Q9967

== ENCOUNTER → 2022-12-20 | Outpatient (CLI) | payer MEDICARE ==
[~2022-12-20] MED LIST changes: -GASTROGRAFIN SOLUTION 30ML As Ordered ONE; -ISOVUE-370 76% 100ML VIAL As Ordered ONE
== END ==
LOC: M WHC 12:00
PROVIDERS: ATTEND Physician Assistant Medical
DX: M79.661 Pain in right lower leg (principal)

== ENCOUNTER → 2022-12-20 | Outpatient (REF) | payer MEDICARE | LOC: M LAB REF 16:30 | PROVIDERS: ATTEND Physician Assistant Medical | DX: R22.41 Localized swelling, mass and lump, right lower limb (principal) ==

== ENCOUNTER → 2022-12-26 | Outpatient (CLI) | payer MEDICARE ==
[~2022-12-26] MED LIST changes: +ISOVUE-370 76% 100ML VIAL As Ordered ONE
== END ==
LOC: M RAD 15:06
PROVIDERS: ATTEND Physician Assistant Medical
DX: R79.1 Abnormal coagulation profile (principal)
CPT/HCPCS: 71275; 93971; Q9967

== ENCOUNTER → 2023-02-19 | Outpatient (CLI) | payer MEDICARE ==
[~2023-02-19] MED LIST changes: -ISOVUE-370 76% 100ML VIAL As Ordered ONE; -ROPI1TAB3 PO; +ROPI1TAB73 PO
== END ==
LOC: M PLALAB 12:21
PROVIDERS: ATTEND Urology
DX: C61 Malignant neoplasm of prostate (principal)

== ENCOUNTER → 2023-05-15 | Outpatient (REF) | payer MEDICARE ==
[~2023-05-15] MED LIST changes: -CEFD300C41 PO; +CEFD300C42 PO
== END ==
LOC: M LAB REF 11:54
PROVIDERS: ATTEND Internal Medicine
DX: I48.0 Paroxysmal atrial fibrillation (principal)

== ENCOUNTER → 2023-09-17 | Outpatient (CLI) | payer MEDICARE ==
[~2023-09-17] MED LIST changes: +CEFD1CAP9 PO; -CEFD300C42 PO
== END ==
LOC: M PLALAB 12:42
PROVIDERS: ATTEND Urology
DX: C61 Malignant neoplasm of prostate (principal)

== ENCOUNTER → 2023-11-14 | Outpatient (REF) | payer MEDICARE ==
[2023-11-14 18:18] LABS: APPEARANCE, URINE HAZY (CLEAR); BACTERIA, URINE AUTO 1+ (NEGATIVE); BILIRUBIN, URINE AUTO NEGATIVE (NEGATIVE); BLOOD, URINE BLOOD NEGATIVE (NEGATIVE); COLOR, URINE AMBER (YELLOW); GLUCOSE, URINE (UA) AUTO NEGATIVE (NEGATIVE); KETONE, URINE AUTO NEGATIVE (NEGATIVE); LEUKOCYTE ESTERASE, URINE AUTO 1+ (NEGATIVE); MUCUS, URINE SMALL (NEGATIVE); NITRITE, URINE AUTO POSITIVE (NEGATIVE); PROTEIN, URINE AUTO NEGATIVE (NEGATIVE); RBC, URINE AUTO 1 /HPF (0-3); SPECIFIC GRAVITY URINE AUTO 1.016 (1.002-1.035); SQUAMOUS EPITHELIAL CELL UR AU 0 /HPF (0-6); UROBILINOGEN, URINE AUTO 0.2 mg/dL (0.0-2.0); WBC, URINE AUTO 25 /HPF (0-3)
== END ==
LOC: M SMT 17:03
PROVIDERS: ATTEND Urology
DX: R30.0 Dysuria (principal)

== ENCOUNTER → 2023-12-30 | Outpatient (REF) | payer MEDICARE ==
[2023-12-30 13:11] LABS: FOLATE 14.7 NG/ML (>5.4)
== END ==
LOC: M LAB REF 11:20
PROVIDERS: ATTEND Internal Medicine
DX: E56.9 Vitamin deficiency, unspecified (principal); G60.9 Hereditary and idiopathic neuropathy, unspecified

== ENCOUNTER → 2024-01-21 | Outpatient (CLI) | payer MEDICARE | LOC: M PLALAB 09:50 | PROVIDERS: ATTEND Urology | DX: C61 Malignant neoplasm of prostate (principal) ==

== ENCOUNTER → 2024-03-30 | Outpatient (CLI) | payer MEDICARE | LOC: M PLARAD 10:00 | PROVIDERS: ATTEND Urology | DX: C61 Malignant neoplasm of prostate (principal) ==

== ENCOUNTER → 2024-09-29 | Outpatient (CLI) | payer MEDICARE ==
[~2024-09-29] MED LIST changes: +GABA-1172 PO; -GABA-282 PO
== END ==
LOC: M RAD 16:10
PROVIDERS: ATTEND Internal Medicine
DX: R22.42 Localized swelling, mass and lump, left lower limb (principal); M79.662 Pain in left lower leg

== ENCOUNTER → 2024-11-02 | Outpatient (CLI) | payer MEDICARE ==
[~2024-11-02] MED LIST changes: -FLOM0.4C39 PO; +TAMS-18 PO
== END ==
LOC: M RAD 13:04
PROVIDERS: ATTEND Internal Medicine
DX: I73.9 Peripheral vascular disease, unspecified (principal)

== ENCOUNTER → 2025-01-13 | Outpatient (CLI) | payer MEDICARE | LOC: M PLALAB 09:43 | PROVIDERS: ATTEND Urology | DX: C61 Malignant neoplasm of prostate (principal) ==

== ENCOUNTER 2025-04-28 09:24 | Emergency (ER) | payer MEDICARE ==
[~2025-04-28] VITALS: Ht 170.2 cm; Wt 80.5 kg
[2025-04-28 11:59] VITALS: BP 137/59; TEMP 97.8; O2SAT 96
[2025-04-28] MEDS ORDERED: AZIT-12 PO (12:12)
[2025-04-28] MEDS ORDERED: PRED20TA PO (12:12)
== END 2025-04-28 12:35 | disposition home or self-care (01) ==
LOC: M ED 09:24
DX: J20.6 Acute bronchitis due to rhinovirus (principal); I48.91 Unspecified atrial fibrillation; G47.33 Obstructive sleep apnea (adult) (pediatric); Z79.01 Long term (current) use of anticoagulants; Z79.2 Long term (current) use of antibiotics; Z79.52 Long term (current) use of systemic steroids; Z79.899 Other long term (current) drug therapy